=== PATIENT | female | born 1965 | race Caucasian/White ===

== ENCOUNTER 2019-06-10 16:21 | Outpatient (REF) | payer MEDICAID, SELFPAY ==
[2019-06-10 13:58] LABS: HCT 42.7 % (36.0-46.0); HGB 13.9 g/dL (12.0-15.5); Mean Corp. HGB Concentration 32.6 g/dL (32.0-36.0); Mean Corpuscular Hemoglobin 29.8 pg (27.0-33.0); Mean Corpuscular Volume 91.4 fL (80-95); Mean Platelet Volume 10.8 fL (8.0-11.0); Platelet Count 292 x1000/uL (130-400); RBC 4.67 m/cumm (4.00-5.20); RBC Distribution Width 13.1 % (11.7-14.6); White Blood Cell Count 4.61 k/cumm (4.4-10.8)
[2019-06-10 14:04] LABS: Anion Gap 8.6 mmol/L (3-11); BUN 18 mg/dL (7-18); CO2 28.4 mmol/L (21.0-32.0); CREATININE 0.76 mg/dL (0.55-1.02); Calculated LDL 101 mg/dL (<100); Chloride 103 mmol/L (98-107); Cholesterol 172 mg/dL (<200); Glucose 82 mg/dL (74-106); HDL Cholesterol 61 mg/dL (40-60); Potassium 4.7 mmol/L (3.5-5.1); Sodium 140 mmol/L (136-145); Triglyceride 50 mg/dL (<150)
== END 2019-06-10 16:41 ==
LOC: NCHCN 16:21
PROVIDERS: PCP Nurse Practitioner Adult Health; Visit Provider Nurse Practitioner Family
DX: Z13.220 Encounter for screening for lipoid disorders (principal); Z13.228 Encounter for screening for other metabolic disorders; Z13.0 Encounter for screening for diseases of the blood and blood-forming organs and certain disorders involving the immune mechanism; Z00.00 Encounter for general adult medical examination without abnormal findings
CPT/HCPCS: 80048; 80061; 85027

== ENCOUNTER 2019-11-26 01:16 | Outpatient (CLI) | payer MEDICAID, SELFPAY ==
--- NOTE | 2019-11-26 11:20 | DI.RAD_ITS ---
EXAM: XR KNEE RT 3V AP,LAT,JESSA CLINICAL HISTORY: KNEE PAIN, M25.569 TECHNIQUE: COMPARISON: CR XR KNEE LT 3V AP,LAT,JESSA from 11/26/2019 FINDINGS: Three views were obtained. No knee joint effusion seen. Cartilaginous joint spaces appear well main tained. No bony abnormality seen. IMPRESSION: Negative examination of the knee.
--- NOTE | 2019-11-26 11:20 | DI.RAD_ITS ---
EXAM: XR KNEE LT 3V AP,LAT,JESAS CLINICAL HISTORY: KNEE PAIN,M25.569 TECHNIQUE: COMPARISON: No exams were available for comparison FINDINGS: Three views were obtained. No gross knee joint effusion. Cartilaginous joint spaces appear fairly w ell maintained. No bony abnormality seen. IMPRESSION: Negative examination the knee.
== END 2019-11-26 01:36 ==
PROVIDERS: PCP Nurse Practitioner Adult Health; Visit Provider Physician Assistant
DX: M25.562 Pain in left knee (principal); M25.561 Pain in right knee
CPT/HCPCS: 73562

== ENCOUNTER 2020-06-21 10:48 | Outpatient (REF) | payer MEDICAID, SELFPAY ==
--- NOTE | 2020-06-21 10:30 | PAPFT_PTH ---
PATIENT: Janette Singh LOC: [facility] U#:[id number] AGE/SX: 54/F ROOM: RE06/21/[address]: Clarice Turk : 1965 BED: DIS: 06/21/2020 SPEC #: [id number] RECD: 06/21/20 18:11 STATUS: KAYLI REQ #: [id number] TASHA: 06/21/20 10:[address]: Clarice Turk DEPT: [facility] Cytology RECD BY: Nimo Sue Tissues: 1 - CX/ENDOCX FOR PAP SMEARS Procedures: PAP THIN PREP/UVM Screening HPV DNA PROBE Comments: [id number]
== END 2020-06-21 10:49 | disposition home or self-care (01) ==
LOC: NCHCN 10:48
PROVIDERS: PCP Nurse Practitioner Family; Visit Provider Nurse Practitioner Family
DX: Z12.4 Encounter for screening for malignant neoplasm of cervix (principal); Z11.51 Encounter for screening for human papillomavirus (HPV)
CPT/HCPCS: 88142; 87624

== ENCOUNTER 2021-08-04 19:05 | Outpatient (REF) | payer MEDICAID, SELFPAY ==
[2021-08-04 20:06] LABS: Anion Gap 8.1 mmol/L (3-11); BUN 18 mg/dL (7-18); CO2 26.9 mmol/L (21.0-32.0); CREATININE 0.8 mg/dL (0.55-1.02); Calcium 9.3 mg/dL (8.5-10.1); Chloride 105 mmol/L (98-107); Glucose 95 mg/dL (74-106); Potassium 3.9 mmol/L (3.5-5.1); Sodium 140 mmol/L (136-145)
== END 2021-08-04 19:06 | disposition home or self-care (01) ==
LOC: NCHCN 19:05
PROVIDERS: PCP Nurse Practitioner Family; Visit Provider Nurse Practitioner Family
DX: I10 Essential (primary) hypertension (principal)
CPT/HCPCS: 80048

== ENCOUNTER 2022-10-25 15:49 | Outpatient (REF) | payer MEDICAID, SELFPAY ==
[2022-10-25 19:15] LABS: Abs Immature Grans 0.01 10^3/uL (0.0-0.06); Absolute Basophil Count 0.06 10^3/uL (0.0-0.2); Absolute Lymphocyte Count 1.45 10^3/uL (1.2-3.4); Absolute Monocyte Count 0.38 10^3/uL (0.1-0.8); Basophils % 0.9; Eosinophils % 1.5; Immature Grans % 0.1; Lymphocytes % 21.6; MCH 29.5 pg (27.0-33.0); MCHC 32.6 % (32.0-36.0); MCV 91 fL (80-95); MPV 10.6 fL (8.0-11.0); Monocytes % 5.7; Neutrophils % 70.2; Platelet Count 288 10^3/uL (130-400); RBC 4.75 10^6/uL (3.93-5.22); RDW 12.7 % (11.7-14.6); RDW-SD 41.8 fL
[2022-10-25 19:34] LABS: ALT 20 U/L (14-59); AST 16 U/L (15-37); Albumin 4.1 g/dL (3.4-5.0); Alkaline Phosphatase 80 U/L (46-116); Anion Gap 6.8 mmol/L (3-11); BUN 21 mg/dL (7-18); Bilirubin, Total 0.4 mg/dL (0.2-1.0); CO2 30.2 mmol/L (21.0-32.0); CREATININE 0.8 mg/dL (0.55-1.02); Calcium 8.8 mg/dL (8.5-10.1); Calculated LDL 79 mg/dL (<100); Chloride 103 mmol/L (98-107); Cholesterol 153 mg/dL (<200); Estimated GFR 85.35 (mL/min/1.73m2); Glucose 97 mg/dL (74-106); HDL Cholesterol 61 mg/dL (40-60); Potassium 3.7 mmol/L (3.5-5.1); Sodium 140 mmol/L (136-145); Total Protein 6.8 g/dL (6.4-8.2); Triglyceride 66 mg/dL (<150)
== END 2022-10-25 15:50 | disposition home or self-care (01) ==
LOC: NCHCN 15:49
PROVIDERS: PCP Nurse Practitioner Family; Visit Provider Nurse Practitioner Family
DX: I10 Essential (primary) hypertension (principal); Z13.0 Encounter for screening for diseases of the blood and blood-forming organs and certain disorders involving the immune mechanism; Z13.220 Encounter for screening for lipoid disorders
CPT/HCPCS: 80053; 80061; 85025

== ENCOUNTER 2023-11-04 15:16 | Outpatient (REF) | payer MEDICAID, SELFPAY ==
[2023-11-04 15:57] LABS: Abs Immature Grans 0.02 10^3/uL (0.0-0.06); Absolute Basophil Count 0.05 10^3/uL (0.0-0.2); Absolute Eosinophil Count 0.06 10^3/uL (0.0-0.7); Absolute Monocyte Count 0.38 10^3/uL (0.1-0.8); Absolute Neutrophil Count 5.77 10^3/uL (1.2-6.7); Basophils % 0.7 %; Eosinophils % 0.8 %; HCT 41.4 % (36.0-46.0); HGB 13.6 g/dL (11.2-15.7); Immature Grans % 0.3 %; Lymphocytes % 18.2 %; MCH 29.5 pg (27.0-33.0); MCHC 32.9 % (32.0-36.0); MCV 90 fL (80-95); MPV 11.2 fL (8.0-11.0); Monocytes % 4.9 %; Neutrophils % 75.1 %; Platelet Count 287 10^3/uL (130-400); RBC 4.61 10^6/uL (3.93-5.22); RDW 13.1 % (11.7-14.6); RDW-SD 42.6 fL; WBC 7.68 10^3/uL (4.4-10.8)
[2023-11-04 17:14] LABS: ALT 22 U/L (14-59); AST 17 U/L (15-37); Albumin 4.4 g/dL (3.4-5.0); Alkaline Phosphatase 69 U/L (46-116); Anion Gap 9.5 mmol/L (3-11); BUN 21 mg/dL (7-18); Bilirubin, Total 0.52 mg/dL (0.2-1.0); CO2 28.5 mmol/L (21.0-32.0); CREATININE 0.8 mg/dL (0.55-1.02); Calcium 9.1 mg/dL (8.5-10.1); Calculated LDL 92 mg/dL (<100); Chloride 105 mmol/L (98-107); Cholesterol 165 mg/dL (<200); Glucose 88 mg/dL (74-106); HDL Cholesterol 62 mg/dL (40-60); Potassium 4.1 mmol/L (3.5-5.1); Sodium 143 mmol/L (136-145); Total Protein 6.9 g/dL (6.4-8.2); Triglyceride 58 mg/dL (<150)
== END 2023-11-04 15:17 | disposition home or self-care (01) ==
LOC: NCHCN 15:16
PROVIDERS: PCP Nurse Practitioner Family; Visit Provider Nurse Practitioner Family
DX: I10 Essential (primary) hypertension (principal); Z82.49 Family history of ischemic heart disease and other diseases of the circulatory system
CPT/HCPCS: 80053; 80061; 85025

== ENCOUNTER 2024-04-07 01:35 | Outpatient (CLI) | payer MEDICAID, SELFPAY ==
--- NOTE | 2024-04-07 12:30 | DI.US_ITS ---
APPROVED REPORT EXAM: Comprehensive 2D, Doppler, and color-flow Echocardiogram Patient Location: Out-Patient Claim Inspector: Leonora Espinal RDCS (AE) Indications: AAA wo rup Other Information Study Quality: Adequate Conclusion Normal left ventricular wall thickness and chamber size. Ejection fraction is 60%. Wall motion is n ormal Normal right ventricular size and function Both atria are mildly enlarged Trileaflet aortic valve with trace regurgitation Mildly thickened mitral leaflets, with late systolic prolapse and moderate regurgitation Normal tricuspid valve with mild regurgitation Estimated right ventricular systolic pressure is 38 mmHg Ascending aorta measures 4.1 cm Wall motion Left Ventricle The left ventricle is normal size. The left ventricular systolic function is normal. The left ventric ular ejection fraction is within the normal range. There is normal left ventricular wall thickness. T here is normal LV segmental wall motion. There is no ventricular septal defect visualized. LVEF is 60 %. Right Ventricle The right ventricle is normal size. The right ventricular systolic function is normal. Atria Left atrium is mildly dilated. Right atrium is mildly dilated. The interatrial septum is intact with no evidence for an atrial septal defect. Aortic Valve The aortic valve is normal in structure. Aortic valve is trileaflet. There is no aortic valvular sten osis. Trace aortic regurgitation. Mitral Valve Mildly thickened mitral leaflets No evidence of mitral valve stenosis. Moderate mitral regurgitation. Late systolic mitral valve prolapse. Tricuspid Valve The tricuspid valve is normal in structure. There is no tricuspid valve stenosis. Mild tricuspid regu rgitation. The RVSP is 37.6 mmHg. Pulmonic Valve The pulmonary valve is normal in structure. There is no pulmonic valvular stenosis. Mild pulmonic reg urgitation. Great Vessels The aortic root is normal in size. The ascending aorta is moderately dilated. Aortic arch is normal i n caliber. IVC is normal in size and collapses >50% with inspiration. Pericardium There is no pericardial effusion. 2D Dimensions IVSD d PLAX 0.90 cm F: 0.6-1.0 Ao Root d 2.64 cm F: 2.7 - 3.3 LVPW d PLAX 0.94 cm F: 0.6 - 1.0 Ao Asc Diam d 4.10 cm F: 2.3 - 3.1 LVID d PLAX 5.05 cm F: 3.8 - 5.2 LVDs 3.40 cm F: 2.2 - 3.5 LV EF Teichholz 60.7 % FS 32.61 % LV EDV (Teich) 121.0 mL LV ESV (Teich) 47.5 mL M-Mode TAPSE 2.84 cm (M/F) >1.7 Auto EF LV EDV A4C 122.6 mL LV EDV A2C 142.7 mL LV EDV BP 133.3 mL LV ESV A4C 49.0 mL LV ESV A2C 56.9 mL LV ESV BP 50.9 mL LVEF(%) A4C 60.0 % LVEF(%) A2C 60.2 % LVEF(%) BP 61.8 % LV SV A4C 73.6 ml LV SV A2C 85.8 ml LV SV BP 82.4 ml LV CO A4C 4.4 L/min LV CO A2C 4.8 L/min LV CO BP 4.6 L/min HR A4C 59.90 BPM HR A2C 55.71 BPM LV EDV Index (BP) LA Volume LA Length A4C 5.9 cm LA Length A2C 5.7 cm LA Area A4C s 22.85 cm2 LA Area A2C s 22.65 cm2 LA Vol A4C A-L 75.13 mL LA Vol A2C A-L 75.95 mL LA Vol Biplane A-L 76.6 mL LA Vol/BSA A4C A-L LA Vol/BSA A2C A-L LA Vol/BSA BP A-L 48.5 mL/m2 LA Vol A4C MOD 68.6 mL LA Vol A2C MOD 69.8 mL LA Vol BP MOD 69.6 mL RA Volume RA Area A4C 18.7 cm2 RA ESV A4C (A-L) 59.6mL RA Vol/BSA A4C A-L RA Length A4C 5.0 cm RA ESV A4C (MOD) 56.6mL LV Diastology MV E' medial 0.067 (>0.07 m/s) MV E Vmax 0.96 (0.4-1.3 m/s) MV E/E' MED 14.46 (<14) MV A Vmax 0.55 (0.4-1.3 m/s) MV E' lateral 0.074 (>0.1 m/s) E/A Ratio 1.7 MV E/E' LAT 13.06 (<14) MV E' Average 0.070 m/s MV E/E'(average) 13.72 Aortic Valve AoV Vmax 1.79 m/s LVOT Vmax 1.26 m/s AoV Peak Grad 12.8 mmHg LVOT Peak Grad 6.3 mmHg AoV Area (Vmax) 1.97 cm2 LVOT VTI 0.238 m AoV VTI 0.414 m LVOT Mean Grad 3.9 mmHg AoV Mean James. 1.18 m/s LVOT SV 66.67 mL AoV Mean Grad 6.7 mmHg LVOT Diam s 1.85 cm AoV Area (VTI) 1.61 cm2 AV Regurg Peak Gr. 12.79 mmHg Velocity Ratio 0.70 Mitral Valve MV DT 156 (160-240 msec) MV Vmax TIPS 1.06 m/s MV Mean Grad 1.3 (<2mmHg) MV VTI 0.443 m Pulmonary Valve PV Vmax 0.92 (0.5-1.5 m/s) RVOT Vmax 0.55 m/s PV Peak Grad 3.4 mmHg RVOT Peak Gr. 1.2 mmHg PV Mean James 0.66 m/s RVOT VTI 0.146 m PV Mean Grad 1.9 mmHg RVOT Mean Gr. 0.6 mmHg Tricuspid Valve RA Pressure 3.00 mmHg TR Vmax 2.94 m/s TV S' 0.16 m/s TR Peak Grad 34.5 mmHg RVSP (TR) 37.6 mmHg
== END 2024-04-07 01:55 ==
PROVIDERS: PCP Nurse Practitioner Family; Visit Provider Student in an Organized Health Care Education/Training Program
DX: I71.30 Abdominal aortic aneurysm, ruptured, unspecified (principal); I34.0 Nonrheumatic mitral (valve) insufficiency
CPT/HCPCS: 93306

== ENCOUNTER 2024-05-19 16:25 | Outpatient (REF) | payer MEDICAID, SELFPAY ==
[2024-05-19 19:18] LABS: ALT 38 U/L (14-59); AST 26 U/L (15-37); Albumin 4.4 g/dL (3.4-5.0); Alkaline Phosphatase 72 U/L (46-116); Anion Gap 7.5 mmol/L (3-11); BUN 17 mg/dL (7-18); Bilirubin, Total 0.73 mg/dL (0.2-1.0); CO2 28.5 mmol/L (21.0-32.0); CREATININE 0.9 mg/dL (0.55-1.02); Calcium 9.5 mg/dL (8.5-10.1); Calculated LDL 71 mg/dL (<100); Chloride 106 mmol/L (98-107); Cholesterol 149 mg/dL (<200); Estimated GFR 73.19 (mL/min/1.73m2); Glucose 95 mg/dL (74-106); HDL Cholesterol 62 mg/dL (40-60); Potassium 4.4 mmol/L (3.5-5.1); Sodium 142 mmol/L (136-145); Total Protein 6.9 g/dL (6.4-8.2); Triglyceride 80 mg/dL (<150)
== END 2024-05-19 16:26 | disposition home or self-care (01) ==
LOC: NCHCN 16:25
PROVIDERS: PCP Nurse Practitioner Family; Visit Provider Nurse Practitioner Family
DX: I10 Essential (primary) hypertension (principal)
CPT/HCPCS: 80053; 80061

== ENCOUNTER 2024-11-05 15:35 | Outpatient (REF) | payer MEDICAID, SELFPAY ==
[2024-11-05 20:55] LABS: Abs Immature Grans 0.02 10^3/uL (0.0-0.06); Absolute Basophil Count 0.05 10^3/uL (0.0-0.2); Absolute Lymphocyte Count 1.52 10^3/uL (1.2-3.4); Absolute Monocyte Count 0.44 10^3/uL (0.1-0.8); Absolute Neutrophil Count 4.71 10^3/uL (1.2-6.7); Basophils % 0.7 %; Eosinophils % 1.5 %; HCT 40.9 % (36.0-46.0); HGB 13.5 g/dL (11.2-15.7); Immature Grans % 0.3 %; Lymphocytes % 22.2 %; MCH 30.5 pg (27.0-33.0); MCV 93 fL (80-95); MPV 11.7 fL (8.0-11.0); Monocytes % 6.4 %; Neutrophils % 68.9 %; Platelet Count 279 10^3/uL (130-400); RBC 4.42 10^6/uL (3.93-5.22); RDW 12.3 % (11.7-14.6); RDW-SD 42.4 fL; WBC 6.84 10^3/uL (4.4-10.8)
== END 2024-11-05 15:36 | disposition home or self-care (01) ==
LOC: NCHCN 15:35
PROVIDERS: PCP Nurse Practitioner Family; Visit Provider Nurse Practitioner Family
DX: R16.2 Hepatomegaly with splenomegaly, not elsewhere classified (principal)
CPT/HCPCS: 85025

== ENCOUNTER 2025-05-11 12:52 | Outpatient (REF) | payer MEDICAID, SELFPAY ==
--- NOTE | 2025-05-11 09:25 | PAPFT_PTH ---
PATIENT: Janette Singh LOC: [facility]#:[id number] AGE/SX: 59/F ROOM: RE05/11/[address]: Brionna Edwards : 1965 BED: DIS: 05/11/2025 SPEC #: [id number] RECD: 05/11/25 18:35 STATUS: KAYLI REQ #: [id number] TASHA: 05/11/25 09:[address]: Brionna Edwards DEPT: [facility] Cytology RECD BY: Nimo Sue ENTERED: 05/11/25 18:36 SP TYPE: PAPFT OTHR DR: Mary Lopes Tissues: 1 - CX/ENDOCX FOR PAP SMEARS Procedures: PAP THIN PREP/UVM Screening HPV DNA PROBE Comments: [id number] (HPV 16 & 18/45)
[2025-05-11 15:14] LABS: Abs Immature Grans 0.01 10^3/uL (0.0-0.06); HCT 41.3 % (36.0-46.0); HGB 13.4 g/dL (11.2-15.7); Immature Grans % 0.2 %; MCH 29.8 pg (27.0-33.0); MCHC 32.4 % (32.0-36.0); MCV 92 fL (80-95); MPV 11.4 fL (8.0-11.0); Platelet Count 264 10^3/uL (130-400); RBC 4.49 10^6/uL (3.93-5.22); RDW 12.3 % (11.7-14.6); RDW-SD 41.7 fL; WBC 5.49 10^3/uL (4.4-10.8)
[2025-05-11 15:33] LABS: ALT 25 U/L (10-49); AST 24 U/L (<34); Albumin 4.3 g/dL (3.2-5.0); Alkaline Phosphatase 56 U/L (46-116); Anion Gap 7.6 mmol/L (3-11); BUN 18 mg/dL (9-23); Bilirubin, Total 1.0 mg/dL (0.2-1.2); CO2 29.4 mmol/L (20.0-31.0); Calcium 9.2 mg/dL (8.3-10.6); Chloride 105 mmol/L (98-107); Cholesterol 131 mg/dL (<200); Glucose 84 mg/dL (74-106); HDL Cholesterol 55 mg/dL (>or=50); Potassium 4.4 mmol/L (3.5-5.1); Sodium 142 mmol/L (136-145); Total Protein 6.4 g/dL (5.7-8.2)
== END 2025-05-11 12:53 | disposition home or self-care (01) ==
LOC: NCHCN 12:52
PROVIDERS: PCP Nurse Practitioner Family; Visit Provider Nurse Practitioner Family
DX: I10 Essential (primary) hypertension (principal); I71.21 Aneurysm of the ascending aorta, without rupture; R16.2 Hepatomegaly with splenomegaly, not elsewhere classified; Z12.4 Encounter for screening for malignant neoplasm of cervix
CPT/HCPCS: 80053; 80061; 88142; 85025; 87624